=== PATIENT | female | born 1975 | race Caucasian/White ===

== ENCOUNTER 2024-11-19 12:42 | Outpatient (CLI) | payer OTHER, SELFPAY ==
--- NOTE | ~2024-11-19 | CT_ITS ---
CLINICAL INDICATION: Epigastric pain COMPARISON: None. TECHNIQUE: Multiple contiguous axial images of the abdomen and pelvis were performed following the ad ministration of with 100 mL Omnipaque-350 intravenous contrast The dose-length product (DLP) was 1072.50 mGy-cm. Automated exposure control and iterative reconstruction technique were employed. FINDINGS/OBSERVATIONS: Visualized lower thorax: The bilateral lung bases are clear. The heart is of normal size, without pericardial effusion. Small hiatal hernia is present. Liver: The liver enhances homogeneously and is enlarged measuring 23 cm in longitudinal dimension. Gallbladder and biliary system: The gallbladder is only minimally distended, and otherwise unremarkable. Pancreas: The pancreas enhances homogeneously without ductal dilatation. Spleen: The spleen enhances homogeneously and is not enlarged measuring 11 cm in longitudinal dimension. Kidneys: The bilateral kidneys enhance symmetrically without hydronephrosis or renal calculi. Adrenal glands: Unremarkable. Gastrointestinal tract: Colonic diverticulosis without surrounding inflammatory change. Appendix: The appendix is not definitively visualized. However, no pericecal inflammatory change is identified suggest the presence of acute appendicitis. Vasculature: Unremarkable. No aneurysmal dilatation or significant stenosis. Lymph nodes: No pathologically enlarged or morphologically suspicious lymph nodes within the retroperitoneum or at the root of the mesentery. Pelvic structures: The bladder is only minimally distended, and otherwise unremarkable. The uterus is anteverted and anteflexed. Multiple follicles within the bilateral ovaries, an expected finding in a patient of this age. Within the lower uterine segment, to the left of midline is a well-circumscribed focus of decreased a ttenuation measuring 23 x 21 x 30 mm, for which pelvic ultrasound is suggested. Body wall and musculoskeletal: Small fat-containing umbilical hernia. No significant degenerative disease within the lower thoracic or lumbosacral spine. IMPRESSION: Hepatomegaly. No additional findings within the upper abdomen. Indeterminate focus of decreased attenuation within the lower uterine segment for which pelvic ultras ound is suggested, if the patient is clinically able. Reviewed, dictated and finalized at location A. [employer] IMPRESSION: Hepatomegaly. No additional findings within the upper abdomen. Indeterminate focus of decreased attenuation within the lower uterine segment f or which pelvic ultrasound is suggested, if the patient is clinically able.
[2024-11-19 13:02] LABS: Estimated Glomerular Filt Rate > 60
== END 2024-11-19 12:43 | disposition home or self-care (01) ==
LOC: MICIMG 12:45
DX: R10.13 Epigastric pain (principal); R16.0 Hepatomegaly, not elsewhere classified
CPT/HCPCS: 74177; Q9967

== ENCOUNTER 2025-04-22 08:20 | Outpatient (CLI) | payer OTHER, SELFPAY ==
[2025-04-22 08:54] LABS: Hematocrit 36.7 % (37.0-47.0); Hemoglobin 12.2 g/dL (12.0-15.0)
[2025-04-22 09:08] LABS: Anion Gap 10 mmol/L (4-12); Blood Urea Nitrogen 14 mg/dL (7-17); Calcium 8.9 mg/dL (8.4-10.2); Carbon Dioxide 25 mmol/L (22-30); Chloride 103 mmol/L (98-107); Estimated Glomerular Filt Rate > 60; Glucose 106 mg/dL (65-110); Potassium 3.5 mmol/L (3.4-5.0); Sodium 138 mmol/L (137-145)
== END 2025-04-22 08:21 | disposition home or self-care (01) ==
PROVIDERS: Anesthesiology; PCP Nurse Practitioner Family; Visit Provider Student in an Organized Health Care Education/Training Program
DX: N93.9 Abnormal uterine and vaginal bleeding, unspecified (principal); Z79.899 Other long term (current) drug therapy
CPT/HCPCS: 36415; 80048; 85014; 85018

== ENCOUNTER 2025-04-26 01:26 | Day surgery (SDC) | payer OTHER, SELFPAY ==
[2025-04-20 15:15] VITALS: BMI 42.0
--- NOTE | 2025-04-20 15:25 | PC.NURSE ---
Report to the Outpatient Waiting Room, entrance under the green pavilion located off [facility], at time __0930am on date _04/26/25 . Planned Procedure Time: _1130am .? Time changes happen often and if your time is changed the preop area will call you the afternoon before. - You and your visitor will be asked to self-screen and do not enter if you have any COVID symptoms. Please call surgeon if you need to reschedule. - A mask is optional within the hospital at this time. Patients may have clear liquids (water, carbonated beverages, clear teas, apple juice) until 3 hours prior to surgery with a maximum of 20 ounces. - No food from midnight until time of surgery and no smoking, or chewing tobacco (or any form of nicotine). No chewing gum, candy or mints. ( 0830am) Take only the following medications with a SIP of water on the morning of surgery: ____Gabapentin, Escitalopram and Xanax if needed DO NOT STOP ANY OF YOUR OTHER PRESCRIPTION MEDICATIONS PRIOR TO SURGERY EXCEPT THE FOLLOWING Hold all vitamins and supplements for 3 days per anesthesiologist. Date of last dose is 04/22/25 Medications to discontinue per physician NONE Date to take last dose NONE Please no make-up, nail arabic, hairspray, perfume, deodorant, or body powder the day of surgery.? No jewelry (including any body piercings) or valuables the day of surgery, leave them at home.? Please take a shower or bath the night before, or the morning of, surgery with an antibacterial soap.? Wear comfortable, loose fitting clothing.? - Jewelry must be removed prior to entering the operating room.? Rings and piercings that are not removed may be cut off. - The hospital will not accept responsibility for valuables.? - Please leave all valuables, including medications, at home the day of surgery. If you are going home after surgery, a licensed car pick up driver must drive you home.? - NO public transportation without another adult if you receive anesthesia. - We recommend that an adult stay with you for 24 hours following discharge. - We also recommend that you do not drive, make important decision, drink alcoholic beverages, or take any drugs that were not prescribed by your health care provider for at least 24 hours after your discharge time. Follow any additional instructions given to you from your surgeon. Telephone instructions given to ___Patient and asked if any additional questions and then verbalized understanding. Patient advised to call surgeon office or pre surgery nurse liaison [phone] if any additional questions.
--- NOTE | 2025-04-25 13:06 | PM.IMHP ---
H&P: HPI History of Present Illness Date/Time: 04/25/25 13:06 Chief Complaint: abnormal uterine bleeding thickened endometrium on US Narrative: 49 yo female who presents for hysteroscopy D&C for evaluation for AUB. Patient was having pelvic pain and had imaging performed in November. Imaging showed an enlarged uterus with thickened endometrium. Patient had heavy menstrual flow after that ultrasound. She reports heavy and irregular menses. Repeat ultrasound was performed 3 month later that again showed an irregularly thickened endometrium. [facility] Past Medical History Medical History Anxiety Hyperlipidemia Hypertension Surgical History Surgical History Hx of appendectomy Family History Family History Grandparent Diabetes mellitus Heart disease Hypertension Social History Social History Smoking packs per day: 0.5 Smoking cigarettes per day: 10.0 Years smoked: 6 Smoking pack-years: 3.00 Smoking status: Former smoker Smoking end date: 11/17/97 Alcohol intake: current Alcohol use details: 1 per 3 months Substance use: former Substance use type: marijuana Do You Feel Safe in your Home?: Yes Lack of Transportation: No Lack of Food: Never True Current Housing: I Have Housing Concerned About Future Housing: No Difficulty Paying Gas/Electric Bills: No Difficulty Paying for Meds: No Currently Unemployed: No Education: High School Diploma/GED Difficulty w/ Childcare or Family Care: No Living arrangements: alone Additional living arrangements comments: Occupation/Education: unemployed Gender identity (if verbalized by the patient): Female Sexual Orientation (if Verbalized by the Patient): Straight or Heterosexual Spiritual care concerns: No Meds Home Medications and Allergies Home Medications ?Medication ?Instructions ?Recorded ?Confirmed ?Type atorvastatin 20 mg tablet 40 mg PO QPM 01/25/25 04/20/25 History escitalopram oxalate 10 mg tablet 10 mg PO DAILY 01/25/25 04/20/25 History gabapentin 300 mg capsule 300 mg PO Q12H 01/25/25 04/20/25 History lisinopril 20 1 tablet PO DAILY 01/25/25 04/20/25 History mg-hydrochlorothiazide 25 mg tablet potassium chloride 10 mEq 10 meq PO DAILY 01/25/25 04/20/25 History tablet,extended release(part/cryst) acetaminophen 325 mg tablet 650 mg PO ONCE PRN pain 04/20/25 04/20/25 History (Tylenol) alprazolam 0.25 mg tablet 0.25 mg PO DAILY PRN anxiety 04/20/25 04/20/25 History Allergies Allergy/AdvReac Type Severity Reaction Status Date / Time No Known Allergies Allergy Mild Verified 04/20/25 15:11 Assessment and Plan Assessment and plan (1) Abnormal uterine bleeding (AUB): Code(s): N93.9 - Abnormal uterine and vaginal bleeding, unspecified Status: Acute Assessment and Plan: 49-year-old female who presents for hysteroscopy D&C regarding abnormal endometrial thickening Patient initially presented in November with pelvic pain Imaging at that time showed enlarged uterus with irregularly thickened endometrial lining Patient continued prolonged menses Repeat ultrasound showed persistent irregularly thickened endometrium Recommended tissue sampling Recommended hysteroscopy D&C Risks, benefits, alternatives discussed Will proceed with the above procedure (2) Endometrial thickening on ultrasound: Code(s): R93.89 - Abnormal findings on diagnostic imaging of other specified body structures Status: Acute
--- NOTE | 2025-04-26 09:11 | WPDHPUPDATE1 ---
History and Physical Update Update Date/Time: 04/26/25 09:11 Patient had called and requested to add endometrial ablation to manage her AUB. Risks, benefits, alternatives discussed. Partner has had vasectomy for contraception. Will plan for hysteroscopy, D&C, endometrial ablation History and Physical has been reviewed, including an updated exam of the patient. There are NO changes in the patient's condition. Risks, benefits, and alternatives have been discussed and questions answered. Patient agrees to proceed with procedure.
[2025-04-26 09:42] VITALS: BP 129/75; PULSE 70; RESP 18; TEMP 36.8; O2SAT 99
[2025-04-26] MEDS: ACETAMINOPHEN 500 MG TABLET 1000 MG PO (10:04)
--- NOTE | 2025-04-26 10:37 | WPDANESEPPF ---
Anes - Initial Pre Proc Eval Procedure: Operation Date: 04/26/25 11:30 Proposed Procedures p Hysteroscopy Dilation and Curettage with Gerda Endometrial Ablation - Mat Hall MD Date/Time: 04/26/25 10:37 Surgeon: Mat Hall MD Pre Op Diagnosis: abnormal uterine bleeding Patient Data Age: 49 Gender: F Height: 1.6 m Weight: 108.2 kg Last Vital Signs Temp 36.8 C 04/26/25 09:42 Pulse 70 04/26/25 09:42 Resp 18 04/26/25 09:42 BP 129/75 04/26/25 09:42 Pulse Ox 99 04/26/25 09:42 O2 Del Method Room Air 04/26/25 09:42 Allergies Allergy/AdvReac Type Severity Reaction Status Date / Time No Known Allergies Allergy Mild Verified 04/26/25 09:47 Home Medications ?Medication ?Instructions ?Recorded ?Confirmed ?Type atorvastatin 20 mg tablet 40 mg PO QPM 01/25/25 04/26/25 History escitalopram oxalate 10 mg tablet 10 mg PO DAILY 01/25/25 04/26/25 History gabapentin 300 mg capsule 300 mg PO Q12H 01/25/25 04/26/25 History lisinopril 20 1 tablet PO DAILY 01/25/25 04/26/25 History mg-hydrochlorothiazide 25 mg tablet potassium chloride 10 mEq 10 meq PO DAILY 01/25/25 04/26/25 History tablet,extended release(part/cryst) acetaminophen 325 mg tablet 650 mg PO ONCE PRN pain 04/20/25 04/20/25 History (Tylenol) alprazolam 0.25 mg tablet 0.25 mg PO DAILY PRN anxiety 04/20/25 04/20/25 History Patient hx anesthesia problems: none Family hx anesthesia problems: none Results Review: All pre-operative results and documents have been reviewed as part of the pre-operative evaluation. [facility] Past Medical History Medical History Anxiety Hyperlipidemia Hypertension Surgical History Surgical History Hx of appendectomy Family History Family History Grandparent Diabetes mellitus Heart disease Hypertension Social History Social History Smoking packs per day: 0.5 Smoking cigarettes per day: 10.0 Years smoked: 6 Smoking pack-years: 3.00 Smoking status: Former smoker Smoking end date: 11/17/97 Alcohol intake: current Alcohol use details: 1 per 3 months Substance use: former Substance use type: marijuana Do You Feel Safe in your Home?: Yes Lack of Transportation: No Lack of Food: Never True Current Housing: I Have Housing Concerned About Future Housing: No Difficulty Paying Gas/Electric Bills: No Difficulty Paying for Meds: No Currently Unemployed: No Education: High School Diploma/GED Difficulty w/ Childcare or Family Care: No Living arrangements: alone Additional living arrangements comments: Occupation/Education: unemployed Gender identity (if verbalized by the patient): Female Sexual Orientation (if Verbalized by the Patient): Straight or Heterosexual Spiritual care concerns: No Anes - Eval Final PreProcedure Day of Procedure 04/26/25 10:37 Patient weight: morbidly obese Heart: regular rate and rhythm Lungs: clear to auscultation Airway: Mallampati scale class II Neurological: alert and oriented Last oral intake: >/= 8 hours ASA classification: III Emergent: no Anesthetic plan: proceed Anesthesia type and monitoring: general GIVS and standard monitoring Results Review: All pre-operative results and documents have been reviewed as part of the pre-operative evaluation. Informed Consent: The patient's anesthetic plan and its attendant risks and benefits were discussed with the patient/family/POA. Questions were solicited and answers provided to the satisfaction of the patient/family/POA.
[2025-04-26] MEDS: LACTATED RINGERS 1,000 ML 30 ML IV CONT (11:00)
[2025-04-26 11:07] LABS: BEDSIDEPREGUCG Negative (Negative)
--- NOTE | 2025-04-26 11:16 | S_PTH ---
PATIENT: Rebecca Mehta LOC: [facility] U#:[id number] AGE/SX: 49/F ROOM: RE04/26/[address]: Mat Hall MD : 1975 BED: DIS: 04/26/2025 SPEC #: [id number] RECD: 04/26/25 12:26 STATUS: MARCIAL REQ #: [id number] VALENTE: 04/26/25 11:[address]: Mat Hall DEPT: [facility] RECD BY: Mook Chase ENTERED: 04/26/25 12:26 SP TYPE: Surgical OTHR DR: Tameka Humphreys, COMMUNITY DEVELOPMENT OFFICER Tissues: A - Endometrial Curettings Procedures: Hematoxylin and Eosin Stain Gross and Microscopic Level 4
--- NOTE | 2025-04-26 11:26 | W.PM.PROC2 ---
Procedure Note - Detailed Date of Procedure 04/26/25 Pre-op Diagnosis abnormal uterine bleeding endometrial thickening on US Post-op Diagnosis Same Procedure Performed hysteroscopy dilation & curettage endometrial ablation Surgeon Mat Hall MD Anesthesia General Indications abnormal uterine bleeding Findings globally thickened endometrium. Small endometrial polyp noted near the fundus. Normal tubal ostia bilaterally Description of Procedure Rebecca Mehta presents for the above procedure. She was counseled as to the indications, risks, benefits, and alternatives to surgery, with the risks including bleeding, infection, damage to surrounding organs, VTE, and complications of anesthesia. Her verbal and written consent was obtained. PROCEDURE: The patient was taken to the OR and general anesthesia induced. She was prepped and draped in Paolo stirrups with support of the back and bilateral lower extremities. I/O catheterization performed of the bladder. The above findings were noted. A single tooth tenaculum was placed on the anterior lip of the cervix. The uterus sounded to 8.5 cm. Hysteroscopy, using a normal saline medium, was performed and showed the above findings. Sharp uterine curettage was then performed and tissue placed on Telfa. The Gerda device was set to a depth of 5.5 cm. The device was inserted into the uterus and deployed. Good fit was reassured by the device indicator. The cervical balloon was insufflated to ensure a good seal. Uterine integrity test was performed by the Gerda device and was successful. The device was then activated. The entire ablation procedure lasted 120 seconds. The cervical balloon was desufflated and the device was removed from the uterus. The hysteroscope was re-introduced to ensure adequate tissue ablation. The tenaculum was removed and hemostasis was observed. The patient tolerated the procedure well. Sponge, lap, and needle counts were correct. The patient had SCD's on throughout the case for VTE prophylaxis. The patient was taken to the recovery room in stable condition. Estimated Blood Loss 5 Drains No Packing No Pathology Yes (endometrial curettings ) Complications No immediate complications Condition Stable Disposition PACU [facility] Billing Surgery - Charge Forward: Surgery Billing
[2025-04-26 11:32] VITALS: BP 128/77; PULSE 70; RESP 20; O2SAT 98
[2025-04-26 12:00] VITALS: BP 148/80; PULSE 52; RESP 18
[2025-04-26 12:25] VITALS: BP 141/76; PULSE 61; RESP 16
== END 2025-04-26 12:36 | disposition home or self-care (01) ==
PROVIDERS: PCP Nurse Practitioner Family; Visit Provider Student in an Organized Health Care Education/Training Program
PROC: 0U5B8ZZ Destruction of Endometrium, Via Natural or Artificial Opening Endoscopic (ICD-10-PCS; CPT 58563; principal; 2025-04-26 11:30)
DX: N93.9 Abnormal uterine and vaginal bleeding, unspecified (principal); N84.0 Polyp of corpus uteri; Z87.891 Personal history of nicotine dependence; E66.01 Morbid (severe) obesity due to excess calories; Z68.41 Body mass index [BMI] 40.0-44.9, adult
CPT/HCPCS: 58563; 88305; A9270; J2003; J2250; J2704; J7120